=== PATIENT | male | born 1970 | race Caucasian/White ===

== ENCOUNTER 2023-07-28 07:23 | Day surgery (SDC) | payer BC ==
[2023-07-27 14:30] VITALS: BMI 36.5
[2023-07-28] MEDS ORDERED: fentaNYL PF 100 MCG/2 ML SYRINGE ONE ×2 (09:56→10:56)
[2023-07-28] MEDS ORDERED: Dexamethasone 4 mg/ml Vial ONE ×2 (09:56→10:56)
[2023-07-28] MEDS ORDERED: PROPOFOL 40 ML ONE ×2 (09:56→10:57)
[2023-07-28] MEDS ORDERED: Ondansetron PF 4 MG/2 ML Vial ONE ×2 (09:56→10:56)
[2023-07-28] MEDS ORDERED: Lidocaine 1% PF 5 ML VIAL ONE ×2 (09:56→10:56)
[2023-07-28] MEDS ORDERED: Rocuronium Bromide 10 MG/ML (10ML VIAL) ONE ×2 (09:56→10:56)
[2023-07-28] MEDS ORDERED: SUGAMMADEX SODIUM 200 MG/2 ML VIAL ONE ×2 (09:56→10:57)
[2023-07-28] MEDS ORDERED: Oxymetazoline HCl 0.05% (30 ML BOT) ONE (10:14)
[2023-07-28] MEDS ORDERED: Lidocaine 1% (PF) 30 ML VIAL ONE (10:51)
[2023-07-28] MEDS ORDERED: EPINEPHrine 1 MG/ML VIAL ONE (10:51)
[2023-07-28] MEDS ORDERED: methylPREDNISolone Acetate 40 mg/ml Vial ONE (11:46)
[2023-07-28] MEDS ORDERED: PHENYLEPHRINE-NS 100 MCG/ML 10 ML SYRINGE ONE (12:09)
[2023-07-28] MEDS ORDERED: ePHEDrine Sulfate 50 MG/10 ML VIAL ONE (12:09)
[2023-07-28] MEDS ORDERED: Triamcinolone 40 MG/ML VIAL ONE (12:24)
== END 2023-07-28 15:18 | disposition home or self-care (01) ==
LOC: SDC 07:23
PROVIDERS: ATTEND Specialist
PROC: 09BW8ZZ Excision of Right Sphenoid Sinus, Via Natural or Artificial Opening Endoscopic (ICD-10-PCS; principal; 2023-07-28)
PROC: 09BS8ZZ Excision of Right Frontal Sinus, Via Natural or Artificial Opening Endoscopic (ICD-10-PCS; principal; 2023-07-28)
PROC: 09BX8ZZ Excision of Left Sphenoid Sinus, Via Natural or Artificial Opening Endoscopic (ICD-10-PCS; principal; 2023-07-28)
PROC: 09BT8ZZ Excision of Left Frontal Sinus, Via Natural or Artificial Opening Endoscopic (ICD-10-PCS; principal; 2023-07-28)
PROC: 09TL8ZZ Resection of Nasal Turbinate, Via Natural or Artificial Opening Endoscopic (ICD-10-PCS; principal; 2023-07-28)
PROC: 09BQ8ZZ Excision of Right Maxillary Sinus, Via Natural or Artificial Opening Endoscopic (ICD-10-PCS; principal; 2023-07-28)
PROC: 09BR8ZZ Excision of Left Maxillary Sinus, Via Natural or Artificial Opening Endoscopic (ICD-10-PCS; principal; 2023-07-28)
PROC: 09BU8ZZ Excision of Right Ethmoid Sinus, Via Natural or Artificial Opening Endoscopic (ICD-10-PCS; principal; 2023-07-28)
PROC: 09BV8ZZ Excision of Left Ethmoid Sinus, Via Natural or Artificial Opening Endoscopic (ICD-10-PCS; principal; 2023-07-28)
DX: J34.3 Hypertrophy of nasal turbinates (principal); J34.2 Deviated nasal septum; J33.0 Polyp of nasal cavity; Z79.899 Other long term (current) drug therapy; J32.4 Chronic pansinusitis; J30.81 Allergic rhinitis due to animal (cat) (dog) hair and dander; J30.89 Other allergic rhinitis; J30.1 Allergic rhinitis due to pollen
CPT/HCPCS: 93005; 93010; J0171; J1030; J1100; J2001; J2405; J2704; J3301